=== PATIENT | male | born 1955 | race Caucasian/White ===

== ENCOUNTER 2021-08-17 11:33 | Emergency (ER) | payer MEDICARE, OTHER ==
[~2021-08-17] VITALS: Ht 177.8 cm; Wt 138.8 kg
--- NOTE | 2021-08-17 12:00 | PHYS DOC ---
Past History Past Medical History: High Cholesterol Past Surgical History: Other Smoking: Non-smoker Alcohol Use: Occasionally Drug Use: None Adult General Chief Complaint Chief Complaint: ABDOMINAL PAIN HPI HPI Patient is a 66-year-old male with a past medical history significant for multiple hernias who presents with a chief complaint of left lower quadrant abdominal pain just under the skin where he has a known hernia that started y afternoon, has been intermittent, 7 out of 10 at its worst, sharp in nature with no radiation. Denies any recent traumas, illnesses, fevers, chest pain, shortness of breath, nausea, vomiting, diarrhea. Denies any hematuria or blood in the stool. States he is making urine and stool normally for him. States he did not take any medicines for the pain. Review of Systems Review of Systems Review of systems otherwise unremarkable except noted in HPI Allergies Allergies Allergies Coded Allergies Type Severity Reaction Last Updated Verified No Known Drug Allergies 03/30/15 No Physical Exam Physical Exam Constitutional: Well developed, well nourished, no acute distress, non-toxic appearance. [] HENT: Normocephalic, atraumatic, bilateral external ears normal, oropharynx moist, no oral exudates, nose normal. [] Eyes: conjunctiva normal, no discharge. [] Neck: Normal range of motion, no tenderness, supple, no stridor. [] Cardiovascular:Heart rate regular rhythm, no murmur [] Lungs & Thorax: Bilateral breath sounds clear to auscultation [] Abdomen: Umbilical hernia that is soft and reducible, small mass in and around left lower quadrant approximately 2 cm, soft and slightly mobile and tender on palpation, no guarding or rebound Skin: Warm, dry, no erythema, no rash. [] Back: No tenderness, no CVA tenderness. [] Extremities: No tenderness, no cyanosis, no clubbing, ROM intact, no edema. [] Neurologic: Alert and oriented X 3, normal motor function, normal sensory function, no focal deficits noted. [] Psychologic: Affect normal, judgement normal, mood normal. [] EKG EKG [] Radiology/Procedures Radiology/Procedures [] Heart Score C/O Chest Pain: No Risk Factors: Risk Factors: DM, Current or recent (<one month) smoker, HTN, HLP, family history of CAD, obesity. Risk Scores: Risk Factors: DM, Current or recent (<one month) smoker, HTN, HLP, family history of CAD, obesity. Course & Med Decision Making Course & Med Decision Making Patient is a 66-year-old male who presents with left lower quadrant abdominal pain/hernia Vital signs nonconcerning. Physical exam noted above. Given pain medicine which resolved patient's symptoms. CT notable for diverticulitis that is uncomplicated. Also showed several fat-containing hernias throughout anterior abdominal wall with no strangulation or incarceration. Also notable for a known 3.2 cm infrarenal AAA, hepatic steatosis, prostamegaly as well. Patient made aware of all these and given copy of CT report. Started on antib iotics and oral pain medicines in the emergency department. Discussed symptom control, antibiotics and diet/hydration over the next couple of days. Advised to follow-up as soon as possible with primary care physician to discuss ED visit and set up a follow-up. Gave strict return precautions to the ED. Patient grateful, verbalized understanding and agreed with plan of discharge. [] Dragon Disclaimer Dragon Disclaimer This electronic medical record was generated, in whole or in part, using a voice recognition dictation system. Departure Departure: Impression: Primary Impression: Diverticulitis Additional Impressions: Fatty liver Hernia of anterior abdominal wall Disposition: 01 HOME / SELF CARE / HOMELESS Condition: STABLE Referrals: PCP,VERONICA (PCP) AZIZA ZEPEDA MD Patient Instructions: Abdominal Aortic Aneurysm, Cholelithiasis, Diverticulitis, Hernia Additional Instructions: Thank you for coming into the emergency department tonight and allowing us to take care of you. Please read all of the attached information carefully go over things we discussed. As we discussed you have an uncomplicated diverticulitis which we treated with antibiotics, pain and nausea medicine. Please adjust your diet over the next 2 to 3 days as we discussed, light and clear and then after that advance as tolerated. Please take all your antibiotics as prescribed until gone. Please follow-up with your primary care physician as soon as you can update on ED visit and set up a follow-up. You are given a copy of your CT report to bring with you to show your doctor. Please come back to the emergency department immediately with any of the new or concerning symptoms that we discussed. Scripts Ondansetron (ONDANSETRON ODT) 4 Mg Tab.rapdis 1 TAB PO PRN Q6-8HRS for nausea for 7 Days, #16 TAB 1 Refill Prov: RAQUEL HANDLEY MD 08/17/21 Hydrocodone Bit/Acetaminophen (HYDROCODONE-APAP 5-325 ) 1 Each Tablet 1 TAB PO TID PRN for abdominal pain for 5 Days, #15 TAB 0 Refills Prov: RAQUEL HANDLEY MD 08/17/21 Amoxicillin/Potassium Clav (AMOX TR-K CLV 875-125 MG TAB) 1 Each Tablet 1 TAB PO BID for diverticulitis for 10 Days, #19 TAB Prov: RAQUEL HANDLEY MD 08/17/21 Problem Qualifiers RAQUEL HANDLEY MD Aug 17, 2021 12:00
--- NOTE | 2021-08-17 13:12 | RAD ---
CT ABDOMEN+PELVIS WO History: Reason: LLQ pain, H/O hernia's / Spl. Instructions: / History: Technique: Noncontrast examination of the abdomen and pelvis. Coronal and sagittal reconstructions we re performed. Exposure: One or more of the following individualized dose reduction techniques were utilized for thi s examination: 1. Automated exposure control 2. Adjustment of the mA and/or kV according to patient size 3. Use of iterative reconstruction technique. Comparison: March 30, 2015. Findings: Lower chest: Scattered linear atelectasis bilaterally. Abdomen and pelvis: Hepatic steatosis. The spleen, adrenal glands, and pancreas unremarkable. Choleli thiasis. No biliary ductal dilatation. Left renal cyst measures 1.8 cm. No hydronephrosis. Decompressed urinary bladder. Bladder calculus im mediately adjacent to the left ureterovesical junction measures 0.4 cm No urinary bladder wall thicke ashutosh. The prostate is enlarged measures 6.2 x 5.4 cm. Colonic diverticulosis. Sigmoid colonic wall thickening with inflamed diverticula and adjacent inflam matory changes. No abscess. No perforation. Appendix not identified. No evidence of bowel obstruction . No pathologic lymphadenopathy. No ascites. Intrarenal abdominal aortic aneurysm measures 3.2 cm. Multifocal multilobulated fat-containing hernias throughout the anterior abdominal wall largest herni a inferiorly measures 5.6 x 5.3 cm with fascial defect measuring 1.2 cm. Numerous additional smaller hernias. Bones: Multilevel lumbar spondylosis most prominent L5-S1. Impression: 1. Acute sigmoid diverticulitis. 2. Multifocal and multilobulated fat-containing hernias throughout the anterior abdominal wall progr essed compared to 2014. 3. 3.2 cm infrarenal abdominal aortic aneurysm, increased compared to prior. 4. Cholelithiasis. 5. Urinary bladder calculus. 6. Hepatic steatosis. 7. Prostamegaly. Electronically signed by: Mark Stiles DO (08/17/2021 1:10 PM) [id number]
[2021-08-17] MEDS ORDERED: AMOX1TAB11 PO (13:32)
[2021-08-17] MEDS ORDERED: ONDA4TAB12 PO (13:32)
[2021-08-17] MEDS ORDERED: HYDR-2155 PO (13:32)
[2021-08-17] MEDS: oxyCODONE/APAP 5/325 1 TAB TABLET PO ONE (13:40)
[2021-08-17] MEDS: AMOXICILLIN/K CLAV 875/125MG TABLET. PO ONE (13:40)
[2021-08-17 13:45] VITALS: BP 137/75
== END 2021-08-17 13:50 | disposition home or self-care (01) ==
LOC: ER 11:33
DX: K57.32 Diverticulitis of large intestine without perforation or abscess without bleeding (principal); K76.0 Fatty (change of) liver, not elsewhere classified; K43.9 Ventral hernia without obstruction or gangrene; E78.00 Pure hypercholesterolemia, unspecified
CPT/HCPCS: 74176; 96372; 99284; J3010